=== PATIENT | female | born 1970 | race Caucasian/White ===

== ENCOUNTER 2022-08-27 22:11 | Emergency (ER) | payer BC, OTHER ==
[2022-08-27 22:28] VITALS: RESP 16; BMI 30.2
[2022-08-27] MEDS ORDERED: SODIUM CHLORIDE 0.9% 500 ML INFUS.BAG IV ONE ×2 (22:51)
[2022-08-27] MEDS ORDERED: ACETAMINOPHEN 1000 MG/100 ML BAG IVPB ONE (22:51)
[2022-08-27] MEDS ORDERED: ACETAMINOPHEN INJECTION 100 ML IVPB ONE (23:24)
[2022-08-27 23:36] LABS: EPI CELLS 1 /uL (0-25.1); HYALINE CASTS 0 /uL (0-3.1); PH,URINE 5.5 (5.0-8.0); URINE APPEARANCE CLEAR; URINE BACTERIA 1 /uL (0-1359); URINE BILIRUBIN NEGATIVE (NEGATIVE); URINE COLOR YELLOW; URINE GLUCOSE (UA) 3+ (NEGATIVE); URINE KETONE NEGATIVE (NEGATIVE); URINE LEUK ESTERASE NEGATIVE (NEGATIVE); URINE NITRITE NEGATIVE (NEGATIVE); URINE PROTEIN NEGATIVE (NEGATIVE); URINE RBC 11 /uL (0-23.9); URINE UROBILINOGEN 0.2 mg/dL (0.2-1.0); URINE WBC 2 /uL (0-25.8)
[2022-08-28 00:12] LABS: VENOUS BASE EXCESS 0.2 mmol/L (-2-2); VENOUS O2 SATURATION 97.7 % (70-80); VENOUS PCO2 41.9 mmHg (38-52); VENOUS PH 7.397 (7.310-7.410)
[2022-08-28 00:34] LABS: BASO % 0.7 % (0-2.0); EOS % 2.2 % (0-4.5); HEMATOCRIT 39.4 % (32.4-45.2); HEMOGLOBIN 12.8 GM/dL (10.7-15.3); LYMPH % 26.1 % (8-40); MCH 28.7 pg (25.7-33.7); MCHC 32.5 g/dl (32.0-36.0); MEAN CELL VOLUME 88.1 fl (80-96); MEAN PLT VOLUME 10.3 fl (7.5-11.1); MONO % 8.2 % (3.8-10.2); NEUT % 62.8 % (42.8-82.8); PLATELET COUNT 235 10^3/uL (134-434); RBC 4.47 M/mm3 (3.60-5.2); WHITE BLOOD COUNT 10.2 K/mm3 (4.0-10.0)
[2022-08-28 00:39] LABS: CHLORIDE 99 mmol/L (98-107); POTASSIUM 4.8 mmol/L (3.5-5.1); SODIUM 133 mmol/L (136-145)
[2022-08-28 00:42] LABS: ALBUMIN 3.8 g/dl (3.4-5.0); ANION GAP 6 MMOL/L (8-16); BLOOD UREA NITROGEN 13.5 mg/dL (7-18); CALCIUM 9.6 mg/dL (8.5-10.1); CO2 29 mmol/L (21-32); LIPASE 393 U/L (73-393); MAGNESIUM 2.1 mg/dL (1.8-2.4)
[2022-08-28 00:45] LABS: SGPT/ALT 51 U/L (13-61)
[2022-08-28 00:46] LABS: BILIRUBIN,TOTAL 0.4 mg/dL (0.2-1); CREATININE 0.9 mg/dL (0.55-1.3); SGOT/AST 21 U/L (15-37); TOT PROT 7.9 g/dl (6.4-8.2)
[2022-08-28 00:47] LABS: ALK PHOS 131 U/L (45-117)
[2022-08-28 01:05] VITALS: BP 154/80; PULSE 66; TEMP 97.9
[2022-08-28 01:05] LABS: GLUCOSE,RANDOM 464 mg/dL (74-106)
[2022-08-28] MEDS ORDERED: INSULIN REGULAR HUMAN 100 UNITS/ML *VIAL SQ ONE (01:51)
[2022-08-28] MEDS ORDERED: metFORMIN HCL 500 MG TABLET (FP) PO ONE (02:03)
[2022-08-28] MEDS ORDERED: metFORMIN HCL 500 MG TABLET (FP) ONE (02:55)
[2022-08-28] MEDS ORDERED: KETOROLAC TROMETHAMINE 15 MG/ML VIAL IVPUSH ONE (04:12)
[2022-08-28] MEDS ORDERED: KETOROLAC TROMETHAMINE 15 MG/ML VIAL ONE (04:18)
== END 2022-08-28 04:32 | disposition home or self-care (01) ==
LOC: JER 22:11
PROC: 3E033NZ Introduction of Analgesics, Hypnotics, Sedatives into Peripheral Vein, Percutaneous Approach (ICD-10-PCS; principal; 2022-08-27)
PROC: 3E0333Z Introduction of Anti-inflammatory into Peripheral Vein, Percutaneous Approach (ICD-10-PCS; 2022-08-28)
PROC: 3E013VG Introduction of Insulin into Subcutaneous Tissue, Percutaneous Approach (ICD-10-PCS; 2022-08-28)
DX: E11.65 Type 2 diabetes mellitus with hyperglycemia (principal); R07.89 Other chest pain; R51.9 Headache, unspecified; R11.2 Nausea with vomiting, unspecified; R35.89 Other polyuria; R63.1 Polydipsia; E86.0 Dehydration; R68.2 Dry mouth, unspecified; Z20.822 Contact with and (suspected) exposure to COVID-19
CPT/HCPCS: 0241U-QW; 36415; 71046-TC-FY; 80053; 81003; 82010; 82803; 82962; 83690; 83735; 84484; 84703; 85025; 87086; 93005; 93010; 99285-25